=== PATIENT | female | born 1935 | race Caucasian/White ===

== ENCOUNTER 2018-12-08 17:45 | Emergency (ER) | payer MEDICARE, OTHER ==
[2018-12-08 18:35] VITALS: BP 145/77; PULSE 64
[2018-12-08] MEDS ORDERED: cefTRIAXone 1 GM in Sodium Chloride 0.9% 50 ML IV ONE (18:55)
[2018-12-08] MEDS ORDERED: Acetaminophen/Codeine 300-30 MG Tab PO ONE (18:55)
[2018-12-08] MEDS ORDERED: Bacitracin Oint 1 GM U/D Packet TOP ONE (18:55)
[2018-12-08] MEDS ORDERED: Amoxicillin/Clavulanate K 875-125 MG Tab PO ONE (18:57)
[2018-12-08] MEDS ORDERED: Diphtheria,Pertussis(Acell),Tetanus Vaccine 0.5 ML SDV IM ONE (18:58)
--- NOTE | 2018-12-08 18:58 | EDM.PDOC ---
ED HPI GENERAL MEDICAL PROBLEM - General Chief Complaint: Bite:Animal, Insect Stated Complaint: CAT BITE RIGHT HAND Time Seen by Provider: 12/08/18 18:56 Source of Information: Reports: Patient History Limitations: Reports: No Limitations - History of Present Illness INITIAL COMMENTS - FREE TEXT/NARRATIVE: pt was bite by her cat today and she has a very red swollen rt hand. This does feel very hot. She states it is very tender. Onset: Today, Sudden Duration: Hour(s): Location: Reports: Upper Extremity, Right Quality: Reports: Ache, Throbbing Associated Symptoms: Reports: Other ( acute swelling and redness of the rt hand. ) Right Arm Pain Score (Numeric/FACES): 5 - Related Data Allergies Allergy/AdvReac Type Severity Reaction Status Date / Time No Known Allergies Allergy Verified 06/07/16 19:21 Home Meds: Home Meds NK [No Known Home Meds] 06/07/16 [History] Past Medical History HEENT History: Reports: Impaired Vision Other HEENT History: wears glasses Cardiovascular History: Reports: Heart Murmur Neurological History: Reports: TIA - Infectious Disease History Infectious Disease History: Reports: Chicken Pox - Past Surgical History GI Surgical History: Reports: Appendectomy Female Surgical History: Reports: Hysterectomy, Salpingo-Oophorectomy Social & Family History - Tobacco Use Smoking Status *Q: Never Smoker - Caffeine Use Caffeine Use: Reports: None - Recreational Drug Use Recreational Drug Use: No ED ROS GENERAL - Review of Systems Review Of Systems: See Below Constitutional: Reports: Other (pain in rt hand. ) HEENT: Reports: No Symptoms Respiratory: Reports: No Symptoms Cardiovascular: Reports: No Symptoms Endocrine: Reports: No Symptoms GI/Abdominal: Reports: No Symptoms : Reports: No Symptoms Musculoskeletal: Reports: Other (pain and swelling in the rt hand. ) Skin: Reports: No Symptoms Neurological: Reports: No Symptoms Psychiatric: Reports: No Symptoms ED EXAM, ANIMAL BITE - Physical Exam Exam: See Below Text/Narrative:: pt has redness and swelling in the rt hand. This feels very hot. Exam Limited By: No Limitations General Appearance: Alert, Anxious, Mild Distress Ears: Normal TMs Nose: Normal Inspection Throat/Mouth: Normal Inspection Head: Atraumatic Neck: Normal Inspection Respiratory/Chest: No Accessory Muscle Use Extremities: Other ( rt hand is red swollen very warm and tender. ) Neurological: Alert, Oriented, Normal Cognition Course - Vital Signs Last Recorded V/S: Last Vital Signs Temp 37.1 C 12/08/18 18:37 Pulse 64 12/08/18 18:37 Resp 16 12/08/18 18:37 BP 145/77 H 12/08/18 18:37 Pulse Ox 99 12/08/18 18:37 - Orders/Labs/Meds Orders: Active Orders 24 hr Category Date Time Status Vaccines to be Administered [RC] PER UNIT ROUTINE Care 12/08/18 18:58 Active Meds: Medications Discontinued Medications Generic Name Dose Route Start Last Admin Trade Name Ana PRN Reason Stop Dose Admin Acetaminophen/Codeine Phosphate 1 tab 12/08/18 18:55 Tylenol With Codeine No.3 300mg/30mg PO 12/08/18 18:56 ONETIME ONE Amoxicillin/Clavulanate Potassium 1 tab 12/08/18 18:57 Augmentin 875 Mg/125 Mg PO 12/08/18 18:58 ONETIME ONE Bacitracin 1 dose 12/08/18 18:55 Bacitracin Oint 1 Gm TOP 12/08/18 18:56 ONETIME ONE Diphtheria/Tetanus/Acell Pertussis 0.5 ml 12/08/18 18:58 Adacel IM 12/08/18 18:59 .ONCE ONE Ceftriaxone Sodium 1 gm/ 50 mls @ 100 mls/hr 12/08/18 18:55 Sodium Chloride IV 12/08/18 19:24 ONETIME ONE - Re-Assessments/Exams Free Text/Narrative Re-Assessment/Exam: 12/08/18 19:04 pt was given rocephen 1gm iv and augnmentin 875. Pt was given a tylenol 3 for pain. Departure - Departure Time of Disposition: 19:39 Disposition: Home, Self-Care 01 Condition: Fair Clinical Impression: Cat bite of hand - Discharge Information Referrals: PCP,None [Primary Care Provider] - Forms: ED Department Discharge Care Plan Goals: soak bid in soapy water, augmentin 875 bid for 8-10 days, elevate hand, tylenol and motrin for pain, use yogurt or probiotic when on the antibiotic. - My Orders Last 24 Hours: My Active Orders 12/08/18 18:58 Vaccines to be Administered [RC] PER UNIT ROUTINE - Assessment/Plan Last 24 Hours: My Active Orders 12/08/18 18:58 Vaccines to be Administered [RC] PER UNIT ROUTINE
== END 2018-12-08 20:45 | disposition home or self-care (01) ==
LOC: JP.ED 17:45
DX: S61.451A Open bite of right hand, initial encounter (principal); Z23 Encounter for immunization; Z86.73 Personal history of transient ischemic attack (TIA), and cerebral infarction without residual deficits; W55.01XA Bitten by cat, initial encounter
CPT/HCPCS: 90471; 90715; 96365; 99282; A9270; J0696; J7050; 99283